=== PATIENT | male | born 1990 | race Caucasian/White ===

== ENCOUNTER → 2018-12-01 17:59 | Outpatient (CLI) | payer MEDICAID ==
[2018-12-01 18:33] LABS: CREATININE - SERUM 0.8 mg/dL (0.6-1.3)
[2018-12-01 19:03] LABS: BASOPHILS 0.4 % (0-2); EOSINOPHILS 1.9 % (0-7); HEMATOCRIT 42.4 % (42.0-54.0); HEMOGLOBIN 14.5 g/dL (13.5-17.5); IMMATURE GRANULOCYTES 0.3 % (0-5); LYMPHOCYTES 23.8 % (15-50); MCH 31.3 pg (26.0-34.0); MCHC 34.2 g/dL (31.0-37.0); MCV 91.4 fL (80.0-100.0); MEAN PLATELET VOLUME 10.5 fL (7.4-10.4); MONOCYTES 7.7 % (2-11); NEUTROPHILS 65.9 % (40-80); PLATELET COUNT 251 10x3/uL (130-400); RBC 4.64 10x6/uL (4.20-6.10); RDW 12.7 % (11.5-14.5); WBC 9.5 10x3/uL (4.8-10.8)
== END | disposition home or self-care (01) ==
LOC: D.LABREF 17:59
PROVIDERS: ATTEND Internal Medicine Infectious Disease
DX: C41.9 Malignant neoplasm of bone and articular cartilage, unspecified (principal)

== ENCOUNTER → 2018-12-08 21:45 | Outpatient (CLI) | payer MEDICAID ==
[2018-12-08 23:04] LABS: CREATININE - SERUM 0.9 mg/dL (0.6-1.3); VANCOMYCIN - TROUGH 7.8 ug/mL (10.0-20.0)
== END | disposition home or self-care (01) ==
LOC: D.LABREF 21:45
DX: Z51.81 Encounter for therapeutic drug level monitoring (principal); Z79.2 Long term (current) use of antibiotics; S82.202K Unspecified fracture of shaft of left tibia, subsequent encounter for closed fracture with nonunion; C41.9 Malignant neoplasm of bone and articular cartilage, unspecified

== ENCOUNTER → 2018-12-12 06:49 | Outpatient (CLI) | payer MEDICAID ==
[2018-12-12 10:27] LABS: BASOPHILS 0.3 % (0-2); EOSINOPHILS 2.9 % (0-7); HEMATOCRIT 39.2 % (42.0-54.0); HEMOGLOBIN 13.2 g/dL (13.5-17.5); IMMATURE GRANULOCYTES 0.6 % (0-5); LYMPHOCYTES 31.2 % (15-50); MCH 31.4 pg (26.0-34.0); MCHC 33.7 g/dL (31.0-37.0); MCV 93.1 fL (80.0-100.0); MEAN PLATELET VOLUME 11.1 fL (7.4-10.4); MONOCYTES 8.5 % (2-11); NEUTROPHILS 56.5 % (40-80); PLATELET COUNT 250 10x3/uL (130-400); RBC 4.21 10x6/uL (4.20-6.10); RDW 13.2 % (11.5-14.5); WBC 9.7 10x3/uL (4.8-10.8)
[2018-12-12 11:11] LABS: CREATININE - SERUM 0.8 mg/dL (0.6-1.3); VANCOMYCIN - TROUGH 4.2 ug/mL (10.0-20.0)
== END | disposition home or self-care (01) ==
LOC: D.LABREF 06:49
PROVIDERS: ATTEND Radiology Diagnostic Radiology
DX: B99.9 Unspecified infectious disease (principal); Z51.81 Encounter for therapeutic drug level monitoring; Z79.2 Long term (current) use of antibiotics; D49.2 Neoplasm of unspecified behavior of bone, soft tissue, and skin

== ENCOUNTER → 2018-12-16 13:52 | Outpatient (CLI) | payer MEDICAID ==
[2018-12-16 14:04] LABS: BASOPHILS 0.4 % (0-2); EOSINOPHILS 3.1 % (0-7); HEMATOCRIT 41.4 % (42.0-54.0); HEMOGLOBIN 14.2 g/dL (13.5-17.5); IMMATURE GRANULOCYTES 0.1 % (0-5); LYMPHOCYTES 26.6 % (15-50); MCH 31.6 pg (26.0-34.0); MCHC 34.3 g/dL (31.0-37.0); MCV 92.2 fL (80.0-100.0); MEAN PLATELET VOLUME 10.4 fL (7.4-10.4); MONOCYTES 9.3 % (2-11); NEUTROPHILS 60.5 % (40-80); PLATELET COUNT 260 10x3/uL (130-400); RBC 4.49 10x6/uL (4.20-6.10); RDW 12.9 % (11.5-14.5); WBC 6.9 10x3/uL (4.8-10.8)
[2018-12-16 14:25] LABS: CREATININE - SERUM 0.8 mg/dL (0.6-1.3); VANCOMYCIN - TROUGH 15.6 ug/mL (10.0-20.0)
== END | disposition home or self-care (01) ==
LOC: D.LABREF 13:52
PROVIDERS: ATTEND Internal Medicine Infectious Disease
DX: T84.623A Infection and inflammatory reaction due to internal fixation device of left tibia, initial encounter (principal)

== ENCOUNTER → 2018-12-23 19:07 | Outpatient (CLI) | payer MEDICAID ==
[2018-12-23 19:34] LABS: BASOPHILS 0.7 % (0-2); EOSINOPHILS 2.2 % (0-7); HEMOGLOBIN 15.8 g/dL (13.5-17.5); IMMATURE GRANULOCYTES 0.1 % (0-5); LYMPHOCYTES 29.6 % (15-50); MCH 32.2 pg (26.0-34.0); MCHC 35.1 g/dL (31.0-37.0); MCV 91.6 fL (80.0-100.0); MEAN PLATELET VOLUME 10.9 fL (7.4-10.4); MONOCYTES 7.7 % (2-11); NEUTROPHILS 59.7 % (40-80); PLATELET COUNT 272 10x3/uL (130-400); RBC 4.91 10x6/uL (4.20-6.10); RDW 12.9 % (11.5-14.5); WBC 7.7 10x3/uL (4.8-10.8)
[2018-12-23 19:44] LABS: CREATININE - SERUM 0.9 mg/dL (0.6-1.3)
== END | disposition home or self-care (01) ==
LOC: D.LABREF 19:07
PROVIDERS: Internal Medicine Infectious Disease
DX: T84.623A Infection and inflammatory reaction due to internal fixation device of left tibia, initial encounter (principal)

== ENCOUNTER → 2018-12-29 18:58 | Outpatient (CLI) | payer MEDICAID ==
[2018-12-29 19:07] LABS: BASOPHILS 0.5 % (0-2); EOSINOPHILS 2.9 % (0-7); HEMATOCRIT 44.3 % (42.0-54.0); HEMOGLOBIN 15.3 g/dL (13.5-17.5); IMMATURE GRANULOCYTES 0.3 % (0-5); LYMPHOCYTES 27.6 % (15-50); MCH 31.4 pg (26.0-34.0); MCHC 34.5 g/dL (31.0-37.0); MEAN PLATELET VOLUME 10.9 fL (7.4-10.4); MONOCYTES 8.6 % (2-11); NEUTROPHILS 60.1 % (40-80); PLATELET COUNT 237 10x3/uL (130-400); RBC 4.87 10x6/uL (4.20-6.10); RDW 12.6 % (11.5-14.5); WBC 6.5 10x3/uL (4.8-10.8)
[2018-12-29 19:19] LABS: CREATININE - SERUM 0.8 mg/dL (0.6-1.3)
== END | disposition home or self-care (01) ==
LOC: D.LABREF 18:58
PROVIDERS: ATTEND Internal Medicine Infectious Disease
DX: T84.623A Infection and inflammatory reaction due to internal fixation device of left tibia, initial encounter (principal)